=== PATIENT | female | born 1955 | race Caucasian/White ===

== ENCOUNTER 2021-05-22 17:10 | Emergency (ER) | payer MEDICARE, MEDICAID ==
[~2021-05-22] VITALS: Ht 147.3 cm; Wt 46.7 kg
[2021-05-22 17:24] VITALS: BP_SYST 153; BP_SYST 159; BP_SYST 170; BP_DIAS 65; BP_DIAS 74; BP_DIAS 95
[2021-05-22 17:29] LABS: BASOPHILS % (AUTO) 0 % (0-10); EOSINOPHILS % (AUTO) 1 % (0-10); HEMATOCRIT 40 % (35-52); HEMOGLOBIN 13.7 g/dL (11.5-16.0); LYMPHOCYTES % (AUTO) 41 % (12-44); MEAN CORPUSCULAR HEMOGLOBIN 30 pg (25-34); MEAN CORPUSCULAR HGB CONC 34 g/dL (32-36); MEAN CORPUSCULAR VOLUME 87 fL (80-99); MEAN PLATELET VOLUME 10.4 fL (9.0-12.2); MONOCYTES % (AUTO) 6 % (0-12); NEUTROPHILS % (AUTO) 52 % (42-75); PLATELET COUNT 324 10^3/uL (130-400); WHITE BLOOD COUNT 9.7 10^3/uL (4.3-11.0)
[2021-05-22 17:30] LABS: EOSINOPHILS # (AUTO) 0.1 10^3/uL (0.0-0.3); LYMPHOCYTES # (AUTO) 3.9 X 10^3 (1.0-4.0); MONOCYTES # (AUTO) 0.6 X 10^3 (0.0-1.0)
[2021-05-22 17:46] LABS: ALANINE AMINOTRANSFERASE 8 U/L (0-55); ALBUMIN 4.6 GM/DL (3.2-4.5); ALKALINE PHOSPHATASE 65 U/L (40-136); BILIRUBIN,TOTAL 0.4 MG/DL (0.1-1.0); BUN/CREATININE RATIO 9; CALCIUM 9.3 MG/DL (8.5-10.1); CARBON DIOXIDE 26 MMOL/L (21-32); CHLORIDE 100 MMOL/L (98-107); CREATININE SERUM 0.67 MG/DL (0.60-1.30); GFR ESTIMATED 97; GLUCOSE 120 MG/DL (70-105); POTASSIUM 3.8 MMOL/L (3.6-5.0); SODIUM 137 MMOL/L (135-145); TOTAL PROTEIN 7.1 GM/DL (6.4-8.2)
--- NOTE | 2021-05-22 17:47 | Diagnostic Imaging Report ---
PROCEDURE: CT head wo r/o stroke. TECHNIQUE: Multiple contiguous axial images were obtained through the brain without the use of intravenous contrast. Auto Exposure Controls were utilized during the CT exam to meet ALARA standards for radiation dose reduction. INDICATION: Vertigo with tingling in the left upper extremity and face. Evaluate for stroke. No relevant comparison examination is available. FINDINGS: There are no CT findings of acute intracranial hemorrhage. There is no evidence of intracranial mass effect or shift. There is no hydrocephalus. There is no abnormal extra-axial collection. There are no CT findings of territorial loss of ortez-white differentiation. There is no abnormal low density evident within the basal ganglia or within the lam. There are no CT findings of a focal hyperdense blood vessel. Mastoid air cells are clear. There is some mucosal thickening and layering fluid in the maxillary sinuses. Orbital contents are unremarkable. There is no acute calvarial abnormality. IMPRESSION: 1. No CT evidence of an acute intracranial abnormality. There are no findings of loss of ortez-white differentiation. There is no hemorrhage, mass effect or hydrocephalus. There is no hyperdense blood vessel 2. Mild mucosal thickening and fluid in the maxillary sinuses. Dictated by: Dictated on workstation # [id number]
[2021-05-22 17:48] LABS: INR 0.8 (0.8-1.4); PROTHROMBIN TIME PATIENT 11.9 SEC (12.2-14.7)
--- NOTE | 2021-05-22 17:50 | Diagnostic Imaging Report ---
INDICATION: Vertigo. Extremity tingling. FINDINGS: There are flattened diaphragms. There are some interstitial changes present within the lungs suggesting COPD. There is no alveolar pneumonia evident. There are no findings of an effusion or pneumothorax. Heart size is appropriate and central pulmonary vascularity appears appropriate without evidence of current failure or edema. There is a marked scoliotic curvature of the thoracolumbar spine. IMPRESSION: 1. Apparent background features of COPD without evidence of an acute superimposed cardiopulmonary process. 2. Advanced spinal scoliosis. Dictated by: Dictated on workstation # [id number]
[2021-05-22 17:52] LABS: FIBRIN DEGRADATION PRODUCTS 0.45 UG/ML (0.00-0.49)
[2021-05-22 17:56] LABS: BILIRUBIN,URINE NEGATIVE (NEGATIVE); CLARITY,URINE CLEAR; COLOR,URINE YELLOW; GLUCOSE, URINE (UA) NEGATIVE (NEGATIVE); KETONES,URINE NEGATIVE (NEGATIVE); LEUKOCYTE ESTERASE ,URINE TRACE (NEGATIVE); NITRITE,URINE NEGATIVE (NEGATIVE); PROTEIN,URINE NEGATIVE (NEGATIVE)
[2021-05-22 18:02] LABS: AMORPHOUS SEDIMENT,UR LARGE AMOR PHOSPHATE /LPF; BACTERIA,URINE NEGATIVE /HPF
--- NOTE | 2021-05-22 18:09 | ED Neurological Problem ---
General Chief Complaint: Cardiac/General Problems Stated Complaint: HIGH BP,TINGLING IN LEFT ARM AND CHEEK,DIZZY Nursing Triage Note: Patient presents to the ED with c/o feeling lightheaded, dizzy, and ringing in ears. She reports that she was seen 10 days ago in Urgent care and prescribed flonase and an oral steriod for vertigo. She was told if her symptoms did not improved then she needed to be reevaluated. History of Present Illness Date Seen by Provider: May 22, 2021 Time Seen by Provider: 17:20 Initial Comments 65 yr F with PMH of HTN not currently on medication, is here with c/o vertigo, ringing in her ears for which she was initially seen in urgent care and treated with Flonase and oral steroids, but it has not been helping. CT head was not done at that visit. Pt also states that last week she had some tingling in her left upper extremity and the left side of her face which lasted for a few minutes. Pt states she has some fullness in her ears and face as well. Denies any tingling or weakness today, runny nose, postnasal drip, SOB, chest pain, fever, abdominal pain, nausea, vomiting. bladder or bowel dysfunction, cough, sick contacts. Allergies and Home Medications Allergies Coded Allergies: No Known Drug Allergies (Unverified , 05/22/21) Patient Home Medication List Home Medication List Reviewed: Yes Review of Systems Review of Systems Constitutional: dizziness Eyes: No Symptoms Reported Ears, Nose, Mouth, Throat: ear pain, nose pain Respiratory: no symptoms reported Cardiovascular: no symptoms reported Gastrointestinal: no symptoms reported Musculoskeletal: no symptoms reported Skin: no symptoms reported Psychiatric/Neurological: Tingling Endocrine: No Symptoms Reported Hematologic/Lymphatic: No Symptoms Reported Past Trszfrz-Rjtgpr-Xovfwu Hx Patient Social History Tobacco Use?: Yes Tobacco type used: Cigarettes Smoking Status: Current Everyday Smoker Substance use?: Yes Substance type: Marijuana Substance frequency: Once in a while Alcohol Use?: No Pt feels they are or have been: No Immunizations Up To Date Influenza Vaccine Up-to-Date: No; Not Current First/Initial COVID19 Vaccinat: Not currently vaccinated Past Medical History Surgery/Hospitalization HX: Rotator cuff repair Physical Exam Vital Signs Vital Signs - First Documented 05/22/21 17:18 Temp 36.6 Pulse 99 Resp 15 B/P (MAP) 168/80 (109) Pulse Ox 100 O2 Delivery Room Air Capillary Refill : Less Than 3 Seconds Height, Weight, BMI Height: '" Weight: lbs. oz. kg; 21.00 BMI Method: General Appearance: WD/WN, no apparent distress HEENT: PERRL/EOMI, normal ENT inspection, TMs normal, pharynx normal, other (maxillary tenderness bilaterally, mild) Neck: non-tender, full range of motion, supple, normal inspection Respiratory: chest non-tender, lungs clear, normal breath sounds, no respiratory distress Cardiovascular: regular rate, rhythm, no edema, no murmur Gastrointestinal: normal bowel sounds, non tender, soft Extremities: normal range of motion, non-tender Neurologic/Psychiatric: director of individual giving II-XII nml as tested, no motor/sensory deficits, alert, normal mood/affect, oriented x 3 Crainal Nerves: normal hearing, normal speech, PERRL Coordination/Gait: normal finger to nose, normal gait Motor/Sensory: no motor deficit, no sensory deficit Skin: normal color Lymphatic: no adenopathy Progress/Results/Core Measures Results/Orders Lab Results Laboratory Tests Test 05/22/21 17:20 05/22/21 17:51 Range/Units White Blood Count 9.7 4.3-11.0 10^3/uL Red Blood Count 4.63 3.80-5.11 10^6/uL Hemoglobin 13.7 11.5-16.0 g/dL Hematocrit 40 35-52 % Mean Corpuscular Volume 87 80-99 fL Mean Corpuscular Hemoglobin 30 25-34 pg Mean Corpuscular Hemoglobin Concent 34 32-36 g/dL Red Cell Distribution Width 13.7 10.0-14.5 % Platelet Count 324 130-400 10^3/uL Mean Platelet Volume 10.4 9.0-12.2 fL Immature Granulocyte % (Auto) 0 % Neutrophils (%) (Auto) 52 42-75 % Lymphocytes (%) (Auto) 41 12-44 % Monocytes (%) (Auto) 6 0-12 % Eosinophils (%) (Auto) 1 0-10 % Basophils (%) (Auto) 0 0-10 % Neutrophils # (Auto) 5.0 1.8-7.8 X 10^3 Lymphocytes # (Auto) 3.9 1.0-4.0 X 10^3 Monocytes # (Auto) 0.6 0.0-1.0 X 10^3 Eosinophils # (Auto) 0.1 0.0-0.3 10^3/uL Basophils # (Auto) 0.0 0.0-0.1 10^3/uL Immature Granulocyte # (Auto) 0.0 0.0-0.1 10^3/uL Prothrombin Time 11.9 L 12.2-14.7 SEC INR Comment 0.8 0.8-1.4 Activated Partial Thromboplast Time 31 24-35 SEC D-Dimer 0.45 0.00-0.49 UG/ML Sodium Level 137 135-145 MMOL/L Potassium Level 3.8 3.6-5.0 MMOL/L Chloride Level 100 98-107 MMOL/L Carbon Dioxide Level 26 21-32 MMOL/L Anion Gap 11 5-14 MMOL/L Blood Urea Nitrogen 6 L 7-18 MG/DL Creatinine 0.67 0.60-1.30 MG/DL Estimat Glomerular Filtration Rate 97 BUN/Creatinine Ratio 9 Glucose Level 120 H 70-105 MG/DL Calcium Level 9.3 8.5-10.1 MG/DL Corrected Calcium 8.5-10.1 MG/DL Total Bilirubin 0.4 0.1-1.0 MG/DL Aspartate Amino Transf (AST/SGOT) 15 5-34 U/L Alanine Aminotransferase (ALT/SGPT) 8 0-55 U/L Alkaline Phosphatase 65 40-136 U/L Troponin I < 0.30 <0.30 NG/ML Total Protein 7.1 6.4-8.2 GM/DL Albumin 4.6 H 3.2-4.5 GM/DL Urine Color YELLOW Urine Clarity CLEAR Urine pH 7.0 5-9 Urine Specific [place] 1.015 L 1.016-1.022 Urine Protein NEGATIVE NEGATIVE Urine Glucose (UA) NEGATIVE NEGATIVE Urine Ketones NEGATIVE NEGATIVE Urine Nitrite NEGATIVE NEGATIVE Urine Bilirubin NEGATIVE NEGATIVE Urine Urobilinogen 0.2 < = 1.0 MG/DL Urine Leukocyte Esterase TRACE H NEGATIVE Urine RBC (Auto) NEGATIVE NEGATIVE Urine RBC NONE /HPF Urine WBC NONE /HPF Urine Squamous Epithelial Cells 2-5 /HPF Urine Crystals PRESENT H /LPF Urine Amorphous Sediment LARGE JARON PHOSPHATE H /LPF Urine Bacteria NEGATIVE /HPF Urine Casts NONE /LPF Urine Mucus NEGATIVE /LPF Urine Culture Indicated YES My Orders Orders - SONY YOUNG MD Cbc With Automated Diff (05/22/21 17:25) Protime With Inr (05/22/21:25) Partial Thromboplastin Time (05/22/21:) Comprehensive Metabolic Panel (05/22/21:) Fibrin Degradation Products (05/22/21:25) Troponin I Fs (05/22/21:) Ua Culture If Indicated (05/22/21:) Chest 1 View Ap/Pa Only (05/22/21:25) Ekg Tracing (05/22/21:) Nothing By Mouth (05/22/21 Dinner) Accucheck Stat ONCE (05/22/21:) Ed Iv/Invasive Line Start (05/22/21:) Vital Signs Stroke Patient Q15M (05/22/21 17:25) Ct Head Wo-R/O Stroke (05/22/21:25) Monitor-Rhythm Ecg Trace Only (05/22/21:25) Dysphagia Screening Tool (05/22/21:) Urine Culture (05/22/21 17:51) Vital Signs/I&O 05/22/21 05/22/21 17:18 17:24 Temp 36.6 Pulse 99 87 108 90 Resp 15 B/P (MAP) 168/80 (109) 153/65 (94) 159/95 (116) 170/74 (106) Pulse Ox 100 O2 Delivery Room Air Blood Pressure Mean: 106 Progress Progress Note : Progress Note 1. VERTIGO: MAXILLARY SINUSITIS: - CT HEAD unremarkable except for maxillary sinusitis - CXR no acute findings - unremarkable labs - Azithro prescription for 3 days and Meclizine , few tabs for prn extreme vertigo. Advised pt NOT to drive after taking Meclizine. Pt agrees and understands. Continue Flonase as needed - F/u with PCP -The patient was seen in the ED, and treated appropriately to presentation at a specific point in time. Patient is informed that there is a possibility that disease and illness can evolve and change in acuity rapidly or slowly after patient is discharged from the ER. Precautionary advice given to the patient for immediate return to ER if symptoms worsen or do not resolve, and to seek emergency care sooner rather than later. Pt also advised on the importance of PCP follow up and compliance with management and follow up plan. Pt verbally expressed understanding. Initial ECG Impression Date: May 22, 2021 Initial ECG Impression Time: 17:24 Initial ECG Rate: 87 Initial ECG Rhythm: Normal Sinus Initial ECG Intervals: Normal Initial ECG Impression: Normal Initial ECG Comparisson: No Previous ECG Available Diagnostic Imaging Diagonstic Imaging: Xray, CT Plain Films/CT/US/NM/MRI: chest, head Comments NAME: HERMILO MARIO [facility] REC#: [id number] PT STATUS: REG ER : 1955 PHYSICIAN: SONY YOUNG MD ADMIT DATE: 05/22/21/ER FS Signed Date of Exam:05/22/21 CT HEAD WO-R/O STROKE PROCEDURE: CT head wo r/o stroke. TECHNIQUE: Multiple contiguous axial images were obtained through the brain without the use of intravenous contrast. Auto Exposure Controls were utilized during the CT exam to meet ALARA standards for radiation dose reduction. INDICATION: Vertigo with tingling in the left upper extremity and face. Evaluate for stroke. No relevant comparison examination is available. FINDINGS: There are no CT findings of acute intracranial hemorrhage. There is no evidence of intracranial mass effect or shift. There is no hydrocephalus. There is no abnormal extra-axial collection. There are no CT findings of territorial loss of ortez-white differentiation. There is no abnormal low density evident within the basal ganglia or within the lam. There are no CT findings of a focal hyperdense blood vessel. Mastoid air cells are clear. There is some mucosal thickening and layering fluid in the maxillary sinuses. Orbital contents are unremarkable. There is no acute calvarial abnormality. IMPRESSION: 1. No CT evidence of an acute intracranial abnormality. There are no findings of loss of ortez-white differentiation. There is no hemorrhage, mass effect or hydrocephalus. There is no hyperdense blood vessel 2. Mild mucosal thickening and fluid in the maxillary sinuses. Dictated by: Dictated on workstation # [id number] Dict: 05/22/211743 Trans: 05/22/211745 [place], [place] NAME: HERMILO MARIO [facility] REC#: [id number] PT STATUS: REG ER : 1955 PHYSICIAN: SONY YOUNG MD ADMIT DATE: 05/22/21/ER FS Signed Date of Exam:05/22/21 CHEST 1 VIEW AP/PA ONLY INDICATION: Vertigo. Extremity tingling. FINDINGS: There are flattened diaphragms. There are some interstitial changes present within the lungs suggesting COPD. There is no alveolar pneumonia evident. There are no findings of an effusion or pneumothorax. Heart size is appropriate and central pulmonary vascularity appears appropriate without evidence of current failure or edema. There is a marked scoliotic curvature of the thoracolumbar spine. IMPRESSION: 1. Apparent background features of COPD without evidence of an acute superimposed cardiopulmonary process. 2. Advanced spinal scoliosis. Dictated by: Dictated on workstation # [id number] Dict: 05/22/211747 Trans: 05/22/211751 PJE [id number] Interpreted by: KIERA CHRISTINE MD Electronically signed by: KIERA CHRISTINE MD 05/22/211751 Departure Impression Primary Impression: Maxillary sinusitis Qualified Codes: J32.0 - Chronic maxillary sinusitis Additional Impression: Vertigo Disposition: 01 HOME, SELF-CARE Condition: Stable Departure-Patient Inst. Referrals: NO,LOCAL PHYSICIAN (PCP/Family) Primary Care Physician Patient Instructions: Vertigo ED, Sinusitis, Adult (DC) Add. Discharge Instructions: Azithromycin daily for 3 days, Meclizine prn dizziness TID, advised NOT to drive while taking this medication, continue FLonase as needed, F/u with PCP The patient was seen in the ED, and treated appropriately to presentation at a specific point in time. Patient is informed that there is a possibility that disease and illness can evolve and change in acuity rapidly or slowly after patient is discharged from the ER. Precautionary advice given to the patient for immediate return to ER if symptoms worsen or do not resolve, and to seek emerge ncy care sooner rather than later. Pt also advised on the importance of PCP follow up and compliance with management and follow up plan. Pt verbally expressed understanding. All discharge instructions reviewed with patient and/or family. Voiced understanding. Scripts Meclizine HCl (Meclizine HCl) 25 Mg Tablet 25 MG PO TID PRN for VERTIGO, #6 TAB Prov: SONY YOUNG MD 05/22/21 Azithromycin (Azithromycin) 500 Mg Tablet 500 MG PO DAILY for 3 Days, #3 TAB Prov: SONY YOUNG MD 05/22/21 SONY YOUNG MD May 22, 2021 18:09
[2021-05-22] MEDS ORDERED: MECL-149 PO (18:28)
[2021-05-22] MEDS ORDERED: AZIT500T9 PO (18:28)
[2021-05-22 18:33] VITALS: BP 141/75
== END 2021-05-22 18:33 | disposition home or self-care (01) ==
LOC: ER FS 17:13
DX: J32.0 Chronic maxillary sinusitis (principal); R42 Dizziness and giddiness; F17.210 Nicotine dependence, cigarettes, uncomplicated
CPT/HCPCS: 36415; 70450; 71045; 80053; 81000; 84484; 85025; 85379; 85610; 85730; 87088; 93005; 93041

== ENCOUNTER → 2021-08-04 | Outpatient (CLI) | payer MEDICARE, MEDICAID ==
[~2021-08-04] MED LIST: AZIT500T9 PO; MECL-149 PO
--- NOTE | 2021-08-04 13:32 | Diagnostic Imaging Report ---
INDICATION: Follow-up wrist fracture. Time of Exam: 12:25 PM No prior studies are available for comparison. FINDINGS: Wrist is encased in a fiberglass cast obscuring bony detail. There appears to be a slightly impacted fracture the distal radius. Alignment appears anatomic. Carpal bones and metacarpals appear intact. IMPRESSION: Anatomic alignment of distal radius fracture. Dictated by: Dictated on workstation # [id number]
--- NOTE | 2021-08-04 13:33 | Diagnostic Imaging Report ---
INDICATION: Left wrist pain. TIME OF EXAM: 12:24 PM 3 views of the left wrist were obtained. Distal radius and ulna are intact. Carpus and metacarpals are intact. No fractures are seen. IMPRESSION: No acute bony abnormality is detected. Dictated by: Dictated on workstation # [id number]
== END ==
LOC: RAD FS 12:07
PROVIDERS: ATTEND Nurse Practitioner
DX: S52.531D Colles' fracture of right radius, subsequent encounter for closed fracture with routine healing (principal); X58.XXXD Exposure to other specified factors, subsequent encounter
CPT/HCPCS: 73110

== ENCOUNTER → 2021-08-16 | Outpatient (CLI) | payer MEDICARE, MEDICAID ==
--- NOTE | 2021-08-16 14:21 | Diagnostic Imaging Report ---
INDICATION: Left wrist pain. Comparison with 08/04/2021 exam. FINDINGS: Two views. There is a minimal sclerotic line developing along the metaphysis of the distal radius suggesting a nondisplaced fracture. A discrete fracture line is not identifiable. There does appear to be a small bony fragment along the tip of the ulnar styloid now, which was not present previously. Carpal bones appear intact. No subluxation is seen. IMPRESSION: 1. Findings suggest a subtle nondisplaced metaphyseal fracture of the distal radius with early healing. 2. Small bony fragment over the ulnar styloid may represent a chip fracture, the origin of which is not sure. This was not present on previous exam. Dictated by: Dictated on workstation # [id number]
--- NOTE | 2021-08-16 14:34 | Diagnostic Imaging Report ---
INDICATION: Follow-up of right wrist fracture. Comparison with 08/04/2021. FINDINGS: Three views. Fiberglass cast has been placed. The minimally dorsally angulated fracture of the distal radius is again noted. There has been some early bony callus formation developing. Radiocarpal joint remains in good alignment. Carpal bones appear in good position. IMPRESSION: Minimally displaced distal radial fracture with early bony callus formation developing. Dictated by: Dictated on workstation # [id number]
== END ==
LOC: RAD FS 11:00
PROVIDERS: ATTEND Nurse Practitioner
DX: M25.532 Pain in left wrist (principal)
CPT/HCPCS: 73100

== ENCOUNTER → 2021-08-30 | Outpatient (CLI) | payer MEDICARE, MEDICAID ==
--- NOTE | 2021-08-30 12:30 | Diagnostic Imaging Report ---
Indication: Right wrist fracture, follow-up. Time of Exam: 11:27 AM Comparison is made with prior radiograph from 08/16/2021. There is a healing slightly impacted fracture of the distal radius. Increase in sclerosis is noted. Alignment is anatomic. Fracture line remains partly visible. Distal ulna is intact. Carpus does show triscaphe and 1st CMC joint degenerative changes. Metacarpals are intact. IMPRESSION: Healing distal radius fracture. Dictated by: Dictated on workstation # [id number]
--- NOTE | 2021-08-30 12:34 | Diagnostic Imaging Report ---
INDICATION: Left wrist fracture. TIME OF EXAM: 11:28 AM Correlation is made with prior radiograph from 08/16/2021. There is a healing fracture of the distal radius. There is an increased amount of sclerosis. Overall alignment is anatomic. An old fracture ulnar styloid is noted. Carpus demonstrates triscaphe joint degenerative changes. Metacarpals are intact. IMPRESSION: Healing distal radius fracture. Overall alignment is anatomic. Dictated by: Dictated on workstation # [id number]
== END ==
LOC: RAD FS 11:04
PROVIDERS: ATTEND Nurse Practitioner
DX: S52.592D Other fractures of lower end of left radius, subsequent encounter for closed fracture with routine healing (principal); S52.531D Colles' fracture of right radius, subsequent encounter for closed fracture with routine healing; X58.XXXD Exposure to other specified factors, subsequent encounter
CPT/HCPCS: 73100

== ENCOUNTER → 2021-09-13 | Outpatient (CLI) | payer MEDICARE, MEDICAID ==
--- NOTE | 2021-09-13 12:53 | Diagnostic Imaging Report ---
INDICATION: Wrist fracture, follow-up. Time of Exam: 11:34 AM Correlation is made prior study 08/30/2021. There continues to be some healing of the distal radius fracture with sclerosis at the fracture site. There continues to be blurring of the fracture lines. Alignment is anatomic. Carpus and metacarpals are intact. IMPRESSION: Continued healing distal radius fracture. Dictated by: Dictated on workstation # [id number]
--- NOTE | 2021-09-13 12:54 | Diagnostic Imaging Report ---
INDICATION: Follow-up right wrist fracture. Time of Exam: 11:37 AM Correlation is made with prior radiograph from 08/30/2021. 2 views right wrist demonstrate impacted distal radius fracture, similar to prior. Fracture line does remain partly visible. There appears to be some healing. Alignment is anatomic. There is generalized demineralization. Triscaphe and 1st CMC joint degenerative changes are noted in the wrist. IMPRESSION: Healing distal radius fracture. Dictated by: Dictated on workstation # [id number]
== END ==
LOC: RAD FS 11:01
PROVIDERS: ATTEND Nurse Practitioner
DX: S52.592D Other fractures of lower end of left radius, subsequent encounter for closed fracture with routine healing (principal); S52.531D Colles' fracture of right radius, subsequent encounter for closed fracture with routine healing
CPT/HCPCS: 73100

== ENCOUNTER 2021-10-08 20:26 | Emergency (ER) | payer MEDICARE, MEDICAID ==
[~2021-10-08] VITALS: Ht 149.8 cm; Wt 48.9 kg
--- NOTE | 2021-10-08 21:02 | ED Fall/Injury ---
General Chief Complaint: Upper Extremity Stated Complaint: FELL/RIB PAIN/ARM INJURY Nursing Triage Note: Pt reports she was walking her dog and went to sampler pickup a stick and lost her balance landing on right arm. Pt c/o right arm, elbow, and rib pain. Took tramadol at 5pm and a muscle relaxer 630pm. Denies LOC. Source: patient History of Present Illness Date Seen by Provider: Oct 08, 2021 Time Seen by Provider: 21:02 Initial Comments 66-year-old female presenting with pain to her right lateral ribs. She had been walking her dog around 3 PM and went to sampler pickup a stick and lost her balance causing her to fall. She scraped her right forearm and elbow area. She hit her ribs on the right side and was concerned that she may have broken a rib. She did try taking tramadol and a muscle relaxer at home prior to coming but it was not helping. She denies hitting her head or losing consciousness. She denies any other injuries. Occurred: this afternoon Severity: severe Injuries/Pain Location: upper extremity (Right forearm abrasion), chest (Right lateral chest wall) Context: lost balance Loss of Consciousness: no loss of consciousness Modifying Factors: Worse With Movement Associated Symptoms (Fall): No Abdominal Pain; Chest Pain (Right lateral chest pain); No Confusion, No Dizziness, No Headache, No Lightheadedness; Muscle Spasms (Right chest wall); No Nausea/Vomiting, No Neck Pain, No Ringing in Ears, No Seizures, No Shortness of Air, No Slurred Speech, No Trouble Walking, No Vision Changes Allergies and Home Medications Allergies Coded Allergies: No Known Drug Allergies (Unverified , 05/22/21) Patient Home Medication List Home Medication List Reviewed: Yes Azithromycin (Azithromycin) 500 Mg Tablet, 500 MG PO DAILY Prescribed by: SONY YOUNG MD on 05/22/211827 Lidocaine (Lidocaine 5% Patch) 5 % Adh..patch, 1 EACH TP Q12H PRN for rib pain/chest wall pain Prescribed by: PHILIP RAMOS on 10/08/212210 Meclizine HCl (Meclizine HCl) 25 Mg Tablet, 25 MG PO TID PRN for VERTIGO Prescribed by: SONY YOUNG MD on 05/22/211827 Review of Systems Review of Systems Constitutional: No chills, No fever Eyes: No Symptoms Reported Ears, Nose, Mouth, Throat: no symptoms reported Respiratory: No cough, No short of breath Cardiovascular: see HPI Gastrointestinal: no symptoms reported Genitourinary: no symptoms reported Musculoskeletal: see HPI Skin: see HPI Psychiatric/Neurological: Denies Headache Past Izneyow-Dyzcek-Jvfrki Hx Immunizations Up To Date First/Initial COVID19 Vaccinat: Not currently vaccinated Past Medical History Surgery/Hospitalization HX: Rotator cuff repair Physical Exam Vital Signs Vital Signs - First Documented 10/08/21 20:41 Temp 36.4 Pulse 85 Resp 14 B/P (MAP) 154/80 (104) Pulse Ox 100 O2 Delivery Room Air Capillary Refill : Height, Weight, BMI Height: '" Weight: lbs. oz. kg; 21.00 BMI Method: General Appearance: mild distress, thin HEENT: PERRL/EOMI, pharynx normal Neck: non-tender, full range of motion, supple, normal inspection Cardiovascular: normal peripheral pulses, regular rate, rhythm Respiratory: No chest non-tender (Tender to palpation on the right lateral ribs. There is no crepitus or step-off); lungs clear, normal breath sounds Gastrointestinal: normal bowel sounds, non tender, soft, no pulsatile mass Extremities: normal range of motion, normal capillary refill, inflammation (Tender to palpation along the right proximal forearm and elbow where she has an abrasion. 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, no motor/sensory deficits, alert, normal mood/affect, oriented x 3 Skin: warm/dry, other (Skin tear and abrasions to her right proximal forearm and elbow area) [place] Coma Score Best Eye Response: (4) Open Spontaneously Best Verbal Response: (5) Oriented Best Motor Response: (6) Obeys Commands [place] Total: 15 Progress/Results/Core Measures Results/Orders My Orders Orders - PHILIP RAMOS MD Fentanyl Inj (Sublimaze Injection) (10/08/21 21:26) Ct Chest Wo (10/08/21 21:26) Wound Dressing-Ed (10/08/21 21:27) Dipht,Pertuss(Acell),Tet Adult (Boostrix (10/08/21 21:30) Medications Given in ED Current Medications Medications Dose Ordered Sig/Luc Route Start Time Stop Time Status Last Admin Dose Admin Diphtheria/ Tetanus/Acell Pertussis 0.5 ml ONCE ONCE IM 10/08/21 21:30 10/08/21 21:31 DC 10/08/21 21:44 0.5 ML Vital Signs/I&O 10/08/21 10/08/21 20:41 22:25 Temp 36.4 36.4 Pulse 85 85 Resp 14 14 B/P (MAP) 154/80 (104) 154/80 Pulse Ox 100 100 O2 Delivery Room Air Room Air Blood Pressure Mean: 104 Progress Progress Note #1: Progress Note CT scan of the chest to evaluate for possible fracture or bony injury. Fentanyl IM 50 mcg to try and help with pain on top of the medicine that she took at home. Clean the wound on her right forearm and dressed with antibiotic ointment and a nonstick dressing. Progress Note #2: Progress Note CT scan did not demonstrate any acute fracture or pneumothorax. Treat symptomatically for bruised ribs. Counseled on lidocaine patches and ice alternating with heat. Splint with a pillow. Counseled on follow-up and return precautions. Keep the wound on her right forearm and elbow clean with soap and water and apply antibiotic ointments at least once or twice a day. check back through the clinic for continued concerns Diagnostic Imaging Diagonstic Imaging: CT Plain Films/CT/US/NM/MRI: chest Comments [facility], [place] NAME: HERMILO MARIO [facility] REC#: [id number] PT STATUS: REG ER : 1955 PHYSICIAN: PHILIP RAMOS MD ADMIT DATE: 10/08/21/ER FS Signed Date of Exam:10/08/21 CT CHEST WO PROCEDURE: CT chest without contrast. TECHNIQUE: Multiple contiguous axial images were obtained through the chest without the use of intravenous contrast. Auto Exposure Controls were utilized during the CT exam to meet ALARA standards for radiation dose reduction. INDICATION: Rib pain after fall. FINDINGS: There is some mild centrilobular emphysema. There is minimal right basilar atelectasis and/or pneumonitis. There is no pleural or pericardial fluid. There is no pneumothorax. Heart size is normal. Thoracic aorta is normal in caliber. There is no pathologically enlarged adenopathy. There are degenerative changes in the spine. No definite displaced rib fracture is appreciated. IMPRESSION: 1. Minimal right basilar subsegmental atelectasis and/or pneumonitis. No definite displaced rib fracture. 2. Degenerative changes in the spine. There is S-type scoliosis. Dictated by: Dictated on workstation # [id number] Dict: 10/08/212153 Trans: 10/08/212206 [facility] [id number] Interpreted by: LLUVIA NIX MD Electronically signed by: LLUVIA NIX MD 10/08/212206 Reviewed: Reviewed by Me Departure Impression Primary Impression: Contusion of rib on right side Qualified Codes: S20.211A - Contusion of right front wall of thorax, initial encounter Additional Impressions: Abrasion of right elbow, initial encounter Fall Qualified Codes: W19.XXXA - Unspecified fall, initial encounter Disposition: HOME, SELF-CARE Condition: Stable Departure-Patient Inst. Decision time for Depature: 22:11 Referrals: SCOTT MART APRN (PCP) Primary Care Physician [facility] (Family) Primary Care Physician Patient Instructions: Preventing Falls ED, Blunt Chest Trauma ED, Rib Fracture or Bruised Rib ED, Wound Care ED Add. Discharge Instructions: Try to keep the wound on your elbow clean with soap and water. May apply antibiotic ointment and nonstick dressing to help it heal. Apply ice alternating with heat to chest wall to help with the bruised ribs. There is no sign of definite rib fracture on the CT scan. If having continued pain and problems check back through the clinic for continued concerns. All discharge instructions reviewed with patient and/or family. Voiced understanding. Scripts Lidocaine (Lidocaine 5% Patch) 5 % Adh..patch 1 EACH TP Q12H PRN for rib pain/chest wall pain MDD 2 for 14 Days, #14 PATCH 0 Refills 2 patches max for 12 hours, then 12 hours patch-free period. Prov: PHILIP RAMOS MD 10/08/21 PHILIP RAMOS MD Oct 08, 2021 21:02
[2021-10-08] MEDS ORDERED: fentaNYL INJ 100 MCG/2 ML AMP IM STA (21:26)
[2021-10-08] MEDS ORDERED: TETANUS,DIPTH,PERTUSS P/F (BOOSTRIX) 0.5 ML VIAL IM ONE (21:30)
--- NOTE | 2021-10-08 22:01 | Diagnostic Imaging Report ---
PROCEDURE: CT chest without contrast. TECHNIQUE: Multiple contiguous axial images were obtained through the chest without the use of intravenous contrast. Auto Exposure Controls were utilized during the CT exam to meet ALARA standards for radiation dose reduction. INDICATION: Rib pain after fall. FINDINGS: There is some mild centrilobular emphysema. There is minimal right basilar atelectasis and/or pneumonitis. There is no pleural or pericardial fluid. There is no pneumothorax. Heart size is normal. Thoracic aorta is normal in caliber. There is no pathologically enlarged adenopathy. There are degenerative changes in the spine. No definite displaced rib fracture is appreciated. IMPRESSION: 1. Minimal right basilar subsegmental atelectasis and/or pneumonitis. No definite displaced rib fracture. 2. Degenerative changes in the spine. There is S-type scoliosis. Dictated by: Dictated on workstation # [id number]
[2021-10-08] MEDS ORDERED: LIDO700A45 TP (22:11)
[2021-10-08 22:25] VITALS: BP 154/80
== END 2021-10-08 22:25 | disposition home or self-care (01) ==
LOC: EDUNIT# 20:26 → ER FS 20:30
DX: S20.211A Contusion of right front wall of thorax, initial encounter (principal); S50.311A Abrasion of right elbow, initial encounter; S50.811A Abrasion of right forearm, initial encounter; Z23 Encounter for immunization; Z28.310 Unvaccinated for COVID-19; W18.30XA Fall on same level, unspecified, initial encounter; Y93.K1 Activity, walking an animal
CPT/HCPCS: 71250; 90715

== ENCOUNTER 2022-09-02 14:41 | Emergency (ER) | payer MEDICARE, MEDICAID ==
[~2022-09-02] VITALS: Ht 149.9 cm; Wt 48.1 kg
[~2022-09-02 14:41] MED LIST changes: +LIDO700A45 TP
--- NOTE | 2022-09-02 15:02 | ED Fall/Injury ---
General Chief Complaint: Trauma-Non Activation Stated Complaint: ANKLE INJ Source: patient, EMS History of Present Illness Date Seen by Provider: Sep 02, 2022 Time Seen by Provider: 14:43 Initial Comments 66-year-old female presenting by EMS from home. She had been walking her dog and he accidentally tripped over him causing her to fall. When she fell she hurt her left wrist and her left foot and ankle. She was able to bear some weight on the left foot and ankle to be able to get up some stairs. She denies hitting her head or losing consciousness. She denies having any chest pain, abdominal pain, nausea, vomiting. She was feeling fine before she tripped over the dog. She received 1 mg of morphine and 4 mg of Zofran by EMS through an IV that they establish. She states that her pain is now down to a 5 or 6. She refused needing any additional medicine prior to having x-rays and imaging. Ice packs were applied here in the ED. Occurred: just prior to arrival Severity: severe Injuries/Pain Location: upper extremity (Left wrist), lower extremity (Left ankle and foot) Context: tripped Loss of Consciousness: no loss of consciousness Modifying Factors: Improves With Immobilization; Worse With Movement; Improves With Pain Medication Associated Symptoms (Fall): No Abdominal Pain, No Chest Pain, No Confusion, No Dizziness, No Headache, No Lightheadedness, No Muscle Spasms, No Nausea/Vomiting, No Neck Pain, No Ringing in Ears, No Seizures, No Shortness of Air, No Slurred Speech; Trouble Walking (Due to pain in the left foot and ankle); No Vision Changes Allergies and Home Medications Allergies Coded Allergies: No Known Drug Allergies (Unverified , 05/22/21) Patient Home Medication List Home Medication List Reviewed: Yes Azithromycin (Azithromycin) 500 Mg Tablet, 500 MG PO DAILY Prescribed by: SONY YOUNG MD on 05/22/21 1828 Hydrocodone/Acetaminophen (Hydrocodone-Acetamin 5-325 mg) 5 Mg-325 Mg Tablet, 1 TAB PO Q8H PRN for PAIN SEVERE Prescribed by: PHILIP RAMOS on 09/02/22 1630 Lidocaine (Lidocaine 5% Patch) 5 % Adh..patch, 1 EACH TP Q12H PRN for rib pain/chest wall pain Prescribed by: PHILIP RAMOS on 10/08/21 2211 Meclizine HCl (Meclizine HCl) 25 Mg Tablet, 25 MG PO TID PRN for VERTIGO Prescribed by: SONY YOUNG MD on 05/22/21 182 Review of Systems Review of Systems Constitutional: No chills, No dizziness, No fever Eyes: Denies Blurred Vision, Denies Photophobia, Denies Vision Changes Ears, Nose, Mouth, Throat: denies ear pain, denies ear discharge, denies nose pain, denies nose discharge, denies epistaxis Respiratory: no symptoms reported Cardiovascular: no symptoms reported Gastrointestinal: No nausea, No vomiting Genitourinary: no symptoms reported Musculoskeletal: see HPI Skin: change in color (Starting to have some bruising to the left lateral foot) Psychiatric/Neurological: Anxiety Past Jlozzjt-Kbfjzk-Oeokni Hx Patient Social History Tobacco Use?: No Smoking Status: Never a Smoker Smokeless Tobacco Frequency: Never a User Use of E-Cig and/or Vaping dev: No Use of E-Cig and/or Vaping Mitchell: Never a User Substance use?: No Alcohol Use?: No Pt feels they are or have been: No Immunizations Up To Date First/Initial COVID19 Vaccinat: denies Past Medical History Surgery/Hospitalization HX: Rotator cuff repair Physical Exam Vital Signs Vital Signs - First Documented 09/02/22 14:41 Temp 36.6 Pulse 73 Resp 18 B/P (MAP) 148/54 (85) Pulse Ox 97 O2 Delivery Room Air Capillary Refill : Height, Weight, BMI Height: '" Weight: lbs. oz. kg; 21.00 BMI Method: General Appearance: mild distress, thin HEENT: PERRL/EOMI, pharynx normal Neck: non-tender, full range of motion, supple, normal inspection Cardiovascular: normal peripheral pulses, regular rate, rhythm Respiratory: chest non-tender, lungs clear, normal breath sounds Gastrointestinal: normal bowel sounds, non tender, soft, no pulsatile mass Extremities: no pedal edema, no calf tenderness, normal capillary refill, other (Tender to palpation on the left wrist and left lateral ankle and foot. Decreased range of motion due to pain at the left wrist and left ankle. Sensation and motor appears to be intact.) Neurologic/Psychiatric: alert, oriented x 3 Skin: warm/dry Mini Coma Score Best Eye Response: (4) Open Spontaneously Best Verbal Response: (5) Oriented Best Motor Response: (6) Obeys Commands [place] Total: 15 Procedures/Interventions Splinting and Joint Reduction : Location: Left wrist and left foot and ankle Pre-Proc Neuro Vasc Exam: normal Post-Proc Neuro Vasc Exam: normal Progress After obtaining verbal consent from the patient nursing staff applied OCL splint to the left wrist and forearm with a sugar-tong splint. This was to help stabilize her distal radius and ulna fracture. A stirrup splint and posterior splint were applied to the left lower extremity. She was neurovascularly intact both pre and post splinting. Counseled on monitoring for swelling and decreased blood flow. Counseled to follow-up with orthopedics this week for casting. Although she did have 20 to 30 degree angulation on the distal radius fracture she also had severe osteoporosis. I felt that that amount of angle was acceptable and did not need reduction. She might require surgery for fixation once she follows up with orthopedics they can see how they want to manage that. In the meantime ice and elevation to help with pain and swelling. Prescribed a few hydrocodone 5/325 mg 1 p.o. every 8 hours as needed severe pain. Patient stated that she was going to try using just plain Tylenol if possible. We will also send a prescription order for a wheelchair in case she was able to get 1 that would fit into her house. Otherwise her friend has a walker that she could borrow. She needs to be nonweightbearing on the left lower extremity and she will have limited use of the left upper extremity due to the splinting. Patient tolerated splinting relatively well without any immediate complication. Progress/Results/Core Measures Results/Orders My Orders Orders - PHILIP RAMOS MD Wrist 3 View Left (09/02/22 14:52) Ankle 3 View Left (09/02/22 14:52) Foot 3 View Left (09/02/22 14:52) Ice: Apply To Affected Area (09/02/22 14:52) Ortho Glass (09/02/22 15:35) Ed Ortho/Other Supplies Order (09/02/22 15:35) Orthopedic Equiment (09/02/22 15:35) Morphine Injection (Morphine Injection (09/02/22 16:08) Vital Signs/I&O 09/02/22 09/02/22 09/02/22 14:41 14:41 17:08 Temp 36.6 36.6 36.5 Pulse 73 73 76 Resp 18 18 15 B/P (MAP) 148/54 (85) 148/54 (85) 114/76 Pulse Ox 97 98 O2 Delivery Room Air Room Air Room Air Progress Progress Note #1: Progress Note Potential diagnosis of left wrist fracture, left ankle fracture, left foot fracture, left foot sprain, left ankle sprain, left wrist sprain. As patient was refusing additional medicine at this point ice packs were applied and elevate the ankle and wrist. Obtain x-rays of the wrist and ankle and foot. Advised patient if she changed her mind and wanted something else for pain that we could give additional pain medicine to help with the pain and the imaging. Progress Note #2: Progress Note On my personal interpretation and reviewed the x-rays of the left wrist did show a comminuted distal radius fracture with approximately 20 to 30 degree angulation. She also appeared to have an ulnar styloid fracture. I have reviewed the radiologist report on the x-rays of the left wrist, left foot, left ankle. The also some of the wrist fractures as noted above. They felt that she additionally had a fracture of the left calcaneus with some collapse of the bone. She did have osteoporosis and thinning of the bone cortex throughout. Counseled patient and friend about results. She is neurovascularly intact and below apply splints to the left wrist and left ankle and foot. Cou nseled to not bear weight on the left foot. She does have access to a walker at home and could use her left hand to help stabilize the walker but could not bear weight with it. Also sent with a prescription for a wheelchair in case she was able to get 1 to help with getting around at home. Encouraged to follow-up with orthopedics within the week for changing over to a cast. She states that when she had previously broken her bilateral wrist that she had seen Philip Rice nurse practitioner with Dr. Rene. We will give contact information for nurse practitioner Philip Rice. Patient tolerated application of sugar-tong splint to the left forearm and wrist as well as sugar-tong and posterior splint to the left ankle and foot. She was neurovascularly intact both pre and post splinting. Counseled on warning signs and return precautions. Counseled on follow-up within the next week for d efinitive casting and care by orthopedics. It is possible that she might require surgery to the left wrist but they may just have this heal on its own. Stressed importance of elevation and ice to help with pain and swelling. Patient stated that she plan to try and use Tylenol for pain. She did not like to take narcotic pain medicine so she can avoid it. We will also send a pre scription for hydrocodone 5/325 mg strength 1 pill every 8 hours as needed for severe pain. Diagnostic Imaging Diagonstic Imaging: Xray Plain Films/CT/US/NM/MRI: ankle (And foot) Comments [facility] [place] [place] NAME: HERMILO MARIO [facility] REC#: [id number] PT STATUS: REG ER : 1955 PHYSICIAN: PHILIP RAMOS MD ADMIT DATE: 09/02/22/ER FS Signed Date of Exam:09/02/22 FOOT 3 VIEW LEFT INDICATION: Pain after tripped and fell over dog. TECHNIQUE: 3 views of the left foot. CORRELATION STUDY: None. FINDINGS: Rather marked bony demineralization is present. There is abnormal volume loss and partial collapse of the calcaneus with fracture which extends to the superior central aspect. Remaining osseous structures of the foot are otherwise intact. Soft tissue edema over the hindfoot. Findings do suggest probable previous fracture deformity of the distal 5th metatarsal. IMPRESSION: Comminuted, somewhat collapsed fracture of the calcaneus. Dictated by: Dictated on workstation # [id number] Dict: 09/02/22 1521 Trans: 09/02/22 1611 [facility] [id number] Interpreted by: KHANH MORRIS DO Electronically signed by: KHANH MORRIS DO 09/02/22 1611 [facility] [place] [place] NAME: HERMILO MARIO [facility] REC#: [id number] PT STATUS: REG ER : 1955 PHYSICIAN: PHILIP RAMOS MD ADMIT DATE: 09/02/22/ER FS Signed Date of Exam:09/02/22 ANKLE 3 VIEW LEFT INDICATION: Pain, tripped over dog, fall. TECHNIQUE: Three views of the left ankle. CORRELATION STUDY: None. FINDINGS: Rather pronounced bony demineralization. There is partial collapse of particularly central and distal aspect of the calcaneus with fracture. The talar dome, distal tibia and fibula appear to be intact. Ankle mortise maintained. Soft tissue swelling over the ankle and hindfoot. IMPRESSION: Collapsed, fractured calcaneus fracture. Dictated by: Dictated on workstation # [id number] Dict: 09/02/22 1523 Trans: 09/02/22 1611 [facility] [id number] Interpreted by: KHANH MORRIS DO Electronically signed by: KHANH MORRIS DO 09/02/22 161 Reviewed: Reviewed by Me Diagonstic Imaging: Xray Plain Films/CT/US/NM/MRI: other (Left wrist) Comments [facility], [place] NAME: HERMILO MARIO [facility] REC#: [id number] PT STATUS: REG ER : 1955 PHYSICIAN: PHILIP RAMOS MD ADMIT DATE: 09/02/22/ER FS Signed Date of Exam:09/02/22 WRIST 3 VIEW LEFT EXAMINATION: Left wrist 3 or more views. REASON FOR EXAM: Fall. Left wrist pain. COMPARISON: 09/13/2021. FINDINGS: Acute and impacted fracture seen involving the distal left radius. There is also a fracture involving the left ulnar styloid. No carpal bone fracture. No focal osseous lesion. IMPRESSION: 1. Acute comminuted and impacted fracture involving the distal left radius. 2. Left ulnar styloid fracture. Dictated by: Dictated on workstation # [id number] Dict: 09/02/22 1526 Trans: 09/02/22 1532 [facility] [id number] Interpreted by: LINDA DEWEY DO Electronically signed by: LINDA DEWEY DO 09/02/22 153 Reviewed: Reviewed by Me Departure Impression Primary Impression: Traumatic closed fracture of left calcaneus with minimal displacement Qualified Codes: S92.002A - Unspecified fracture of left calcaneus, initial encounter for closed fracture Additional Impressions: Closed traumatic displaced fracture of distal end of left radius Qualified Codes: S52.502A - Unspecified fracture of the lower end of left radius, initial encounter for closed fracture Closed fracture of styloid process of left ulna Qualified Codes: S52.612A - Displaced fracture of left ulna styloid process, initial encounter for closed fracture Fall at home Qualified Codes: W19.XXXA - Unspecified fall, initial encounter; Y92.009 - Unspecified place in unspecified non-institutional (private) residence as the place of occurrence of the external cause Osteoporosis Qualified Codes: M80.00XA - Age-related osteoporosis with current pathological fracture, unspecified site, initial encounter for fracture Disposition: HOME, SELF-CARE Condition: Stable Departure-Patient Inst. Decision time for Depature: 16:39 Referrals: SCOTT MART APRN (PCP) Primary Care Physician [facility] (Family) Primary Care Physician KAYLYNN RICE MICHAEL P MD Patient Instructions: Foot Fracture ED, Forearm and Wrist Fractures ED, Cast Care ED Add. Discharge Instructions: Keep splints clean and dry and in place until you follow up with Orthopedics Call clinic to get appointment this upcoming week with Nurse Practitioner Philip Rice for Orthopedics about the wrist fracture and the calcaneus (Heel) fracture. Use Acetaminophen for pain and for severe pain you could take the Hydrocodone/Acetaminophen pills 5/325 mg. Limit your total Acetaminophen intake to less that 3,000 mg which would be about 10 regular strength Acetaminophen pills or pain pills. Do not bear weight on your left foot. You can use the left hand to help stabilize yourself with the walker but will have to primarily use the right hand and arm for support. Keep foot and wrist elevated as high as you can tolerate it to help with swelling and pain. Ice 20-30 minutes every few hours as needed for pain and swelling. All discharge instructions reviewed with patient and/or family. Voiced understanding. Scripts Hydrocodone/Acetaminophen (Hydrocodone-Acetamin 5-325 mg) 5 Mg-325 Mg Tablet 1 TAB PO Q8H PRN for PAIN SEVERE for 5 Days, #15 TAB 0 Refills Prov: PHILIP RAMOS MD 09/02/22 PHILIP RAMOS MD Sep 02, 2022 15:01
--- NOTE | 2022-09-02 15:26 | Diagnostic Imaging Report ---
INDICATION: Pain after tripped and fell over dog. TECHNIQUE: 3 views of the left foot. CORRELATION STUDY: None. FINDINGS: Rather marked bony demineralization is present. There is abnormal volume loss and partial collapse of the calcaneus with fracture which extends to the superior central aspect. Remaining osseous structures of the foot are otherwise intact. Soft tissue edema over the hindfoot. Findings do suggest probable previous fracture deformity of the distal 5th metatarsal. IMPRESSION: Comminuted, somewhat collapsed fracture of the calcaneus. Dictated by: Dictated on workstation # [id number]
--- NOTE | 2022-09-02 15:27 | Diagnostic Imaging Report ---
INDICATION: Pain, tripped over dog, fall. TECHNIQUE: Three views of the left ankle. CORRELATION STUDY: None. FINDINGS: Rather pronounced bony demineralization. There is partial collapse of particularly central and distal aspect of the calcaneus with fracture. The talar dome, distal tibia and fibula appear to be intact. Ankle mortise maintained. Soft tissue swelling over the ankle and hindfoot. IMPRESSION: Collapsed, fractured calcaneus fracture. Dictated by: Dictated on workstation # [id number]
--- NOTE | 2022-09-02 15:30 | Diagnostic Imaging Report ---
EXAMINATION: Left wrist 3 or more views. REASON FOR EXAM: Fall. Left wrist pain. COMPARISON: 09/13/2021. FINDINGS: Acute and impacted fracture seen involving the distal left radius. There is also a fracture involving the left ulnar styloid. No carpal bone fracture. No focal osseous lesion. IMPRESSION: 1. Acute comminuted and impacted fracture involving the distal left radius. 2. Left ulnar styloid fracture. Dictated by: Dictated on workstation # [id number]
[2022-09-02] MEDS ORDERED: morphine INJ 10 MG/ML 1ML (SYR OR VIAL) IVP STA (16:08)
[2022-09-02] MEDS ORDERED: ACHD5005 PO (16:29)
[2022-09-02 17:08] VITALS: BP 114/76
== END 2022-09-02 17:08 | disposition home or self-care (01) ==
LOC: EDUNIT# 14:41 → ER FS 14:41
DX: S92.002A Unspecified fracture of left calcaneus, initial encounter for closed fracture (principal); S52.592A Other fractures of lower end of left radius, initial encounter for closed fracture; S52.612A Displaced fracture of left ulna styloid process, initial encounter for closed fracture; M81.0 Age-related osteoporosis without current pathological fracture; Z28.310 Unvaccinated for COVID-19; W01.0XXA Fall on same level from slipping, tripping and stumbling without subsequent striking against object, initial encounter; Y92.009 Unspecified place in unspecified non-institutional (private) residence as the place of occurrence of the external cause; Y93.K1 Activity, walking an animal
CPT/HCPCS: 73110; 73610; 73630

== ENCOUNTER 2022-09-15 05:34 | Outpatient (CLI) | payer MEDICARE, MEDICAID ==
[~2022-09-15] VITALS: Ht 149.9 cm; Wt 45.4 kg
[~2022-09-15 05:34] MED LIST changes: +ACHD5005 PO
[2022-09-15] MEDS ORDERED: ATOR10TA66 PO (11:00)
[2022-09-15] MEDS ORDERED: CITA40TA13 PO (11:00)
== END 2022-09-15 11:20 | disposition home or self-care (01) ==
LOC: PREOP 05:34
PROVIDERS: ATTEND Orthopaedic Surgery
DX: Z01.818 Encounter for other preprocedural examination (principal)

== ENCOUNTER 2022-09-18 08:58 | Day surgery (SDC) | payer MEDICARE, MEDICAID ==
[~2022-09-18] VITALS: Ht 149.9 cm; Wt 45.4 kg
[2022-09-18] VITALS (11 sets, daily range): BP systolic 114–182; BP diastolic 64–87
[~2022-09-18 08:58] MED LIST changes: +ATOR10TA66 PO; +CITA40TA13 PO
[2022-09-18] MEDS ORDERED: ceFAZolin INJECTION 2,000 MG in NS (IVPB) 50 ML IV ONE (09:15)
[2022-09-18] MEDS: LACTATED RINGERS 1,000 ML IV PRN ×2 (09:17→13:00)
[2022-09-18] MEDS ORDERED: BUPIVACAINE 0.5% 30 ML (SENSORCAINE) VIAL ONE (10:10)
[2022-09-18] MEDS ORDERED: NEO/POLY/BAC (NEOSPORIN) OINT 15 GM TUBE ONE (10:10)
[2022-09-18] MEDS ORDERED: fentaNYL INJ 100 MCG/2 ML AMP ONE (11:29)
[2022-09-18] MEDS ORDERED: LIDOCAINE PF 2% 5 ML (XYLOCAINE) VIAL ONE (11:29)
[2022-09-18] MEDS ORDERED: proPOfol 200 MG/20 ML (DIPRIVAN) VIAL IV ONE (11:29)
[2022-09-18] MEDS ORDERED: ONDANSETRON 4 MG/2 ML (SDV) Z0FRAN ONE (11:29)
[2022-09-18] MEDS ORDERED: SEVOFLURANE (ULTANE) 15 ML INHAL SOLN ONE ×2 (11:29→12:59)
[2022-09-18] MEDS ORDERED: MIDAZOLAM 2 MG/2 ML (VERSED) VIAL ONE (11:29)
--- NOTE | 2022-09-18 11:38 | Progress Note-Pre Operative ---
Pre-Operative Progress Note Date of Available H&P: Sep 14, 2022 Date H&P Reviewed: Sep 18, 2022 Time H&P Reviewed: 11:25 History & Physical: H&P Reviewed, Patient Examed, No changes noted Pre-Operative Diagnosis: Left Distal Radius Fracture EZ NUNO MD Sep 18, 2022 11:38
[2022-09-18] MEDS ORDERED: ESMOLOL 100 MG/10 ML (BREVIBLOC) VIAL ONE (12:30)
[2022-09-18] MEDS ORDERED: KETOROLAC 30 MG/ML VIAL ONE (12:57)
--- NOTE | 2022-09-18 13:13 | Operative Report - Ortho ---
Operative Report Surgeon (s)/[employer] (s) Surgeon EZ NUNO MD [employer] n/a Pre-Operative Diagnosis Left Distal Radius Fracture Post-Operative Diagnosis same Operative Report Date of Procedure: Sep 18, 2022 Name of Procedure Performed: Open Reduction and Internal Fixation of Left Distal Radius Fracture Description & Findings After obtaining informed consent, the patient was taken to the operating room. General anesthesia was induced. Surgical timeout was taken. The left upper extremity was prepped and draped in the usual sterile fashion. Incision was made over the volar side of the wrist. Radial artery was identified and protected. Fascia was divided, retractors were placed, and the pronator was reflected. Fracture site was exposed. Fracture site was mobilized. Reduction maneuver was performed using traction, wrist flexion, and ulnar deviation. A [employer] distal radius plate was selected and position against the bone using C- arm. A nonlocking screw was placed in the slot of the plate. A nonlocking screw was then placed in the most distal row of the plate. Plate position and reduction were confirmed in the AP and lateral planes. An ulnar sided locking screw was placed in the distal row followed by the ulnar sided locking screw in the 2nd row. C-arm was once again utilized and noted to have good position of hardware with maintained reduction of fracture. 2 locking screws were then placed in the radial styloid position. 2 locking screws were placed in the diaphyseal portion of the plate. Images were obtained in the AP, and lateral and demonstrated adequate reduction of the fracture with neutral volar tilt and appropriate position of the hardware. Final images were transferred to PACS. Wound was irrigated with normal saline. Subcutaneous layer was closed with 3-0 vicryl. Skin was closed with 4-0 nylon. Wound was injected locally with marcaine. Arm was dressed with steri-strips, xeroform, 4x4s, webril, volar splint, and UBALDO wrap. Patient tolerated the procedure well and was stable to the recovery room. Anesthesia Type General Estimated Blood Loss minimal Specimen(s) collected/removed None EZ NUNO MD Sep 18, 2022 13:12
[2022-09-18] MEDS ORDERED: ONDANSETRON 4 MG/2 ML (SDV) Z0FRAN IVP PRN (13:15)
[2022-09-18] MEDS ORDERED: HYDROmorphone 2 MG/ML VIAL (DILAUDID) IV ONE (13:15)
[2022-09-18] MEDS ORDERED: ACHD5005 PO (13:15)
[2022-09-18] MEDS ORDERED: HYDROcodone/APAP 5 MG/325 MG (LORTAB) TAB ONE (14:19)
[2022-09-18] MEDS ORDERED: HYDROcodone/APAP 5 MG/325 MG (LORTAB) TAB PO ONE (14:30)
--- NOTE | 2022-09-18 17:49 | Diagnostic Imaging Report ---
INDICATION: Fracture One minute 5 seconds of fluoroscopy time utilized during orthopedic repair of wrist fracture. IMPRESSION: Fluoroscopy utilized during orthopedic surgery. Dictated by: Dictated on workstation # [id number]
== END 2022-09-18 15:01 | disposition home or self-care (01) ==
LOC: SDC 08:58
PROVIDERS: ATTEND Orthopaedic Surgery
DX: S52.532A Colles' fracture of left radius, initial encounter for closed fracture (principal); S92.012A Displaced fracture of body of left calcaneus, initial encounter for closed fracture; F17.210 Nicotine dependence, cigarettes, uncomplicated; W10.9XXA Fall (on) (from) unspecified stairs and steps, initial encounter
CPT/HCPCS: 76000; 87081

== ENCOUNTER → 2022-10-18 | Outpatient (CLI) | payer MEDICARE, MEDICAID ==
--- NOTE | 2022-10-18 17:24 | Diagnostic Imaging Report ---
EXAMINATION: Left calcaneus radiographs, 2 views. COMPARISON: Left foot radiographs September 02, 2022. HISTORY: 67-year-old female, follow-up left calcaneal fracture. FINDINGS: There is a displaced calcaneal fracture which is also present on September 02, 2022. There is a redemonstrated displaced fracture fragment medially seen on the axial view. There are also areas of sclerosis in the calcaneus relating to the prior fracture. There is interval at least partial bone bridging at site of prior fracture involvement anterior to the posterior calcaneal facet. The bones do appear demineralized. There is no identified radiopaque foreign body. There is lack of bridging of the medially displaced fracture fragment. IMPRESSION: At least partial healing response of the prior left calcaneal fracture with lack of bridging of the medial displaced fracture fragment. Dictated by: Dictated on workstation # [id number]
--- NOTE | 2022-10-18 18:20 | Diagnostic Imaging Report ---
INDICATION: Fracture follow-up, postsurgical follow-up. COMPARISON: 09/02/2022. TECHNIQUE: Two radiographs of the left wrist dated 10/18/2022. FINDINGS: Interval plate and screw fixation of previously noted comminuted distal radial fracture. Overall alignment appears improved from the prior examination with improved dorsal tilt. However, a persistent fracture fragment remains posteriorly located. No evidence of hardware complication. Mild sclerosis and periosteal reaction is present. Slightly distracted ulnar styloid avulsion fracture is again seen and stable. No new fracture or dislocation. No destructive osseous process. Carpal alignment is well maintained. No suspicious radiopaque foreign body. IMPRESSION: Interval plate and screw fixation of previously noted distal radial fracture with alignment appearing improved with mild healing noted. No evidence of hardware complication. Recommend continued radiographic follow-up to ensure further healing. Stable ulnar styloid avulsion fracture. No new acute osseous abnormality. Dictated by: Dictated on workstation # [id number]
== END ==
LOC: RAD FS 13:42
PROVIDERS: ATTEND Orthopaedic Surgery
DX: S52.532D Colles' fracture of left radius, subsequent encounter for closed fracture with routine healing (principal); S92.012D Displaced fracture of body of left calcaneus, subsequent encounter for fracture with routine healing; X58.XXXD Exposure to other specified factors, subsequent encounter; Z98.890 Other specified postprocedural states
CPT/HCPCS: 73100; 73650

== ENCOUNTER → 2022-11-14 | Outpatient (CLI) | payer MEDICARE, MEDICAID ==
--- NOTE | 2022-11-14 14:35 | Diagnostic Imaging Report ---
EXAMINATION: Left heel two view. HISTORY: Calcaneal fracture. COMPARISON: 10/18/2022. FINDINGS: There is unchanged alignment of a healing fracture of the left calcaneus. No new fracture is seen. 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 IMPRESSION: 1. Unchanged alignment of a healing left calcaneal fracture. Dictated by: Dictated on workstation # [id number]
--- NOTE | 2022-11-14 14:58 | Diagnostic Imaging Report ---
EXAMINATION: Left wrist two view HISTORY: Fracture. COMPARISON: 10/18/2022. FINDINGS: Reduction internal fixation of left distal radius. Fracture appears to be healed. There is a nonunited fracture of the ulnar styloid process. No new fracture. No change in alignment. IMPRESSION: 1. Healed reduced and internally fixated left distal radial fracture. Dictated by: Dictated on workstation # [id number]
== END ==
LOC: RAD FS 12:39
PROVIDERS: ATTEND Orthopaedic Surgery
DX: S52.532A Colles' fracture of left radius, initial encounter for closed fracture (principal); S92.012D Displaced fracture of body of left calcaneus, subsequent encounter for fracture with routine healing
CPT/HCPCS: 73100; 73650